=== PATIENT | female | born 1955 | race Caucasian/White ===

== ENCOUNTER → 2018-02-05 | Outpatient (CLI) | payer OTHER ==
[~2018-02-05] MED LIST: ACET1TAB38 PO; ALBU8.5H7 IH; ASPI-484 PO; ATOR40TA PO; BACL10TA PO; CARI350T PO; CARI350T14 PO; CARV12.5 PO; CARV12.52 PO; CARV3.12 PO; CEPH-350 PO; CETI10TA24 PO; CLOP75TA52 PO; CYCL10TA2 PO; DICL75TA2 PO; DULO30CA2 PO; ESOM40CA PO; ESTR0.5T PO; FLUT16SP; FLUT1AER IH; FURO-80 PO; FURO-81 PO; GABA400C10 PO; GABA800T2 PO; HYOS0.1258 PO; IBUP-1131 PO; LISI-410 PO; LORA-448 PO; LORA1TAB PO; LORA2TAB PO; METO50TA6 PO; NITR0.4T SL; OLAN2.5T3 PO; ONDA4TAB7 PO; POTA10TA PO; PROP80CA12 PO; QUET25TA PO; RAMI2.5C2 PO; RAMI2.5C28 PO; RIZA10TA PO; SUVO15TA2 PO; TRAZ-131 PO; [UNRECOGNIZED DRUG - CODE] PO
--- NOTE | 2018-02-05 14:21 | DIREP ---
PROCEDURE: MRI SPINE CERVICAL W/O TECHNIQUE:Multiplanar MR images of the cervical spine were obtained without contrast. COMPARISON:None. INDICATIONS:CERVICALGIA FINDINGS: ALIGNMENT:Normal. VERTEBRAE:Previous anterior fusion with plate and screws from C4 through C7. Anterior osteophyte formation at the C3-4 level. SPINAL CORD:Normal. PARASPINAL AREA:Normal. OTHER:No additional findings. CERVICAL DISC LEVELS C2-C3:Normal. C3-C4:Disc osteophyte complex indents the anterior thecal sac narrowing the AP diameter of the central canal to 8.4 mm sagittal series 301, image 6. There is no foraminal stenosis. C4-C5:The disc is fused. C5-C6:The disc is fused. C6-C7:The disc is fused. C7-T1:Normal. CONCLUSION: 1. Previous anterior fusion from C4 through C7. 2. Mild central canal narrowing at the C3-4 level. Dictated by: Jordan Fried M.D. on 02/05/2018 at 02:11 PM
--- NOTE | 2018-02-05 14:24 | DIREP ---
PROCEDURE:MRI L SPINE W O CONTRAST TECHNIQUE:Axial T1 and T2; sagittal T1, T2 and inversion recovery; coronal T2 weighted sequences were obtained of the lumbar spine. COMPARISON:[facility], MR, MRI SPINE LUMBAR W/O, 02/08/2015, 01:09 PM. INDICATIONS:LOW BACK PAIN FINDINGS: ALIGNMENT:Normal. VERTEBRAE:Normal. PARASPINAL AREA:Normal. OTHER:The conus medullaris is normal in signal and morphology and ends at the proximal L2 level. LUMBAR DISC LEVELS T12-L1:Normal. L1-L2:Normal. L2-L3:Normal. L3-L4:Normal. L4-L5:Normal. L5-S1:Normal. CONCLUSION:Normal MRI of the lumbar spine. There have been no changes as compared to the previous study. Dictated by: Jordan Fried M.D. on 02/05/2018 at 02:21 PM
== END | disposition home or self-care (01) ==
LOC: RAD 12:14
PROVIDERS: ATTEND Nurse Practitioner Family
DX: M48.02 Spinal stenosis, cervical region (principal); M54.5 Low back pain
CPT/HCPCS: 72141; 72148

== ENCOUNTER → 2018-05-02 | Outpatient (CLI) | payer OTHER ==
[~2018-05-02] MED LIST changes: -GABA800T2 PO; +GABA800T5 PO
--- NOTE | 2018-05-02 12:01 | DIREP ---
PROCEDURE:Digital Screening Mammogram TECHNIQUE:MLO and CC digital images of each breast are provided. Computer Assisted Detection (CAD) was utilized. COMPARISON:[facility], , DIGITAL MAMMO BILATERAL DIAGNOSTIC, 02/25/2014, 11:26 AM. [facility], MAMMO BILATERAL SCREENING WITH CAD, 04/06/2015, 01:21 PM. INDICATIONS:SCREENING BREAST COMPOSITION:The breasts are heterogeneously dense, which may obscure small masses. FINDINGS:There are no grouped microcalcifications, masses, or architectural distortions to suggest malignancy. There is no significant change as compared with the previous examination(s). IMPRESSION:No mammographic evidence of malignancy. RECOMMENDATIONS:Routine Screening Mammography per [employer] guidelines. OVERALL FINAL ASSESSMENT:BI-RADS 2 - Benign Mammogram Note: This facility participates in a mammography screening patient reminder system. Dictated by: Brandin Yañez M.D. on 05/02/2018 at 11:57 AM
--- NOTE | 2018-05-02 14:25 | DIREP ---
PROCEDURE:BONE DENSITY PERIPHERAL INDICATIONS:OSTEOPOROSIS COMPARISON:None. FINDINGS: Femur Proximal RIGHT femur bone mineral density (BMD) (g/cm2): 0.834 T-score : -1.4 Proximal LEFT femur bone mineral density (BMD) (g/cm2): 0.828T-score: -1.4 Lumbar Lumbar bone mineral density (BMD) (g/cm2): 1.043T-score : -1.2 Imaging- No significant findings CONCLUSION:1. Osteopenia. 2. Based on the Bo FRAX study, the patient's 10-year probability of a major osteoporotic fracture (clinical spine, forearm, hip or shoulder) is 15.7 %, and the 10-year probability of a hip fracture is 1.9 %. SUGGESTED RECOMMENDATIONS: Normal & Osteopenia:Consideration should be given to use of calcium supplementation, daily multiple vitamins and adequate exercise, as preventive measures against osteoporosis, if clinically indicated. Osteoporosis & Severe Osteoporosis:In addition to the above, consideration should be given to medical therapy against osteoporosis, if clinically indicated. Dictated by: Elias Martinez MD on 05/02/2018 at 02:20 PM
== END | disposition home or self-care (01) ==
LOC: RAD 09:54
PROVIDERS: ATTEND Nurse Practitioner Family
DX: Z12.31 Encounter for screening mammogram for malignant neoplasm of breast (principal); M85.88 Other specified disorders of bone density and structure, other site
CPT/HCPCS: 77067; 77080

== ENCOUNTER → 2018-06-18 | Outpatient (CLI) | payer MEDICARE ==
[~2018-06-18] MED LIST changes: +LEXISCAN IV ONE
--- NOTE | 2018-06-18 16:37 | ECHO ---
DATE OF SERVICE: INTERPRETATION: An M-mode, 2D, color flow, and Doppler study is available for review. The left ventricular volume is normal with normal motion of the septum and posterior wall. There is normal diastolic mitral valve separation and normal systolic aortic valve excursion. Aortic root is nondilated. Left atrium is moderately dilated. There is moderate mitral regurgitation. Parasternal short axis view reveals same finding. Apical 4 chamber view demonstrates normal left and right ventricular volume with normal motion of the septum, apex and lateral wall. Moderately dilated left atrium. Normal right atrium. Mild tricuspid regurgitation. Moderate mitral regurgitation. FINAL ASSESSMENT: 1. Complete M-mode, 2D, color flow and Doppler study. 2. Left ventricular volume is normal with overall normal wall motion and ejection fraction of 65%. 3. Moderate mitral regurgitation. 4. Moderate left atrial dilatation. 5. Mild tricuspid regurgitation. 6. No other distinct abnormalities seen. Kobe Lane MD DR: KAMRON/carlos JOB# [id number]
== END | disposition home or self-care (01) ==
LOC: RAD 12:10
PROVIDERS: ATTEND Internal Medicine Cardiovascular Disease
DX: I08.1 Rheumatic disorders of both mitral and tricuspid valves (principal); I25.110 Atherosclerotic heart disease of native coronary artery with unstable angina pectoris; I10 Essential (primary) hypertension; E11.9 Type 2 diabetes mellitus without complications; I11.0 Hypertensive heart disease with heart failure; I50.9 Heart failure, unspecified
CPT/HCPCS: 78452; 93017; 93306; A9500; J2785

== ENCOUNTER → 2020-12-01 | Outpatient (CLI) | payer MEDICARE ==
[~2020-12-01] MED LIST changes: -ASPI-484 PO; +ASPI-485 PO; -CETI10TA24 PO; +CETI10TA77 PO; -LEXISCAN IV ONE; -LISI-410 PO; +LISI20TA21 PO; -PROP80CA12 PO; +PROP80CA52 PO; -QUET25TA PO; +QUET25TA3 PO; -RAMI2.5C2 PO; -TRAZ-131 PO; +TRAZ-168 PO; +[UNRECOGNIZED DRUG - CODE] PO
== END | disposition home or self-care (01) ==
LOC: LAB 17:17
PROVIDERS: ATTEND Nurse Practitioner Family
DX: R30.0 Dysuria (principal)
CPT/HCPCS: 87086

== ENCOUNTER → 2022-03-09 | Outpatient (CLI) | payer MEDICARE ==
[~2022-03-09] MED LIST changes: -ACET1TAB38 PO; +ACET1TAB63 PO; +CLOP-28 PO; -CLOP75TA52 PO; +CYCL10TA19 PO; -CYCL10TA2 PO; -RIZA10TA PO; +RIZA10TA97 PO
== END | disposition home or self-care (01) ==
LOC: NPLAB 16:46
PROVIDERS: ATTEND Nurse Practitioner Family
DX: R30.0 Dysuria (principal)
CPT/HCPCS: 87086